=== PATIENT | female | born 1980 | race Caucasian/White ===

== ENCOUNTER → 2017-02-09 | Outpatient (REF) | payer MEDICAID ==
[2017-02-09 18:34] LABS: MEAN CORPUSCULAR HEMOGLOBIN 31.9 pg (27.0-33.0); MEAN CORPUSCULAR HGB CONC 33.9 g/dl (32.0-36.5); MEAN CORPUSCULAR VOLUME 93.9 fl (80.0-96.0); PLATELET COUNT, AUTOMATED 322 10^3/uL (150-450); RED CELL DISTRIBUTION WIDTH 13.2 % (11.5-14.5); WHITE BLOOD COUNT 10.5 10^3/uL (4.0-10.0)
[2017-02-09 18:44] LABS: HCG, SERUM QUANTITATIVE 50513 MIU/ML
[2017-02-11 10:47] LABS: HBsAg Prenatal NEGATIVE (NEGATIVE)
== END ==
LOC: M LAB REF 16:32
PROVIDERS: ATTEND Obstetrics & Gynecology
DX: Z36.9 Encounter for antenatal screening, unspecified (principal); O36.80X0 Pregnancy with inconclusive fetal viability, not applicable or unspecified

== ENCOUNTER → 2017-03-11 | Outpatient (REF) | payer MEDICAID ==
[2017-03-11 15:33] LABS: CHLAMYDIA DNA AMPLIFICATION NEGATIVE (NEGATIVE); GC DNA AMPLIFICATION NEGATIVE (NEGATIVE)
== END ==
LOC: M LAB REF 13:06
DX: Z34.91 Encounter for supervision of normal pregnancy, unspecified, first trimester (principal); Z36.89 Encounter for other specified antenatal screening
CPT/HCPCS: 87591

== ENCOUNTER → 2017-06-24 | Outpatient (CLI) | payer OTHER ==
[2017-06-24 08:44] LABS: GLUCOSE, FASTING 83 MG/DL (LESS THAN 95)
[2017-06-24 09:50] LABS: 1 HR GLUCOSE 143 MG/DL (LESS THAN 180)
[2017-06-24 10:47] LABS: 2 HR GLUCOSE 118 MG/DL (LESS THAN 155)
[2017-06-24 12:08] LABS: 3 HR GLUCOSE 97 MG/DL (LESS THAN 140)
== END ==
LOC: M LAB 08:05
DX: O09.512 Supervision of elderly primigravida, second trimester (principal)
CPT/HCPCS: 82951

== ENCOUNTER → 2017-08-19 | Outpatient (REF) | payer OTHER | LOC: M LAB REF 12:46 | DX: Z34.83 Encounter for supervision of other normal pregnancy, third trimester (principal) ==

== ENCOUNTER 2017-09-10 06:34 | Inpatient (IN) | payer OTHER ==
[2017-09-10] MEDS: BICITRA 30ML SOLN UDC PO ×2 (09:00)
[2017-09-10 09:20] LABS: HEMATOCRIT 32.5 % (36.0-47.0); HEMOGLOBIN 10.7 g/dl (12.0-15.5); MEAN CORPUSCULAR HEMOGLOBIN 30.8 pg (27.0-33.0); MEAN CORPUSCULAR HGB CONC 32.9 g/dl (32.0-36.5); MEAN CORPUSCULAR VOLUME 93.7 fl (80.0-96.0); PLATELET COUNT, AUTOMATED 336 10^3/uL (150-450); RED BLOOD COUNT 3.47 10^6/uL (4.00-5.40); RED CELL DISTRIBUTION WIDTH 14.6 % (11.5-14.5); WHITE BLOOD COUNT 13.6 10^3/uL (4.0-10.0)
[2017-09-10 09:47] LABS: AMPHETAMINES URINE REFLEX NEGATIVE (NEGATIVE); BARBITURATES URINE REFLEX NEGATIVE (NEGATIVE); BENZODIAZEPINES URINE REFLEX NEGATIVE (NEGATIVE); CANNABINOIDS URINE REFLEX NEGATIVE (NEGATIVE); COCAINE METABOLITE URINE REFLE NEGATIVE (NEGATIVE); METHADONE URINE REFLEX NEGATIVE (NEGATIVE); OPIATES URINE REFLEX NEGATIVE (NEGATIVE); PHENCYCLIDINE URINE REFLEX NEGATIVE (NEGATIVE)
[2017-09-10] MEDS: LACTATED RINGER'S 1000 ML IV ×2 (10:01)
[2017-09-10] MEDS: LR 1,000 ML IV ×6 (10:02→16:00)
[2017-09-10] MEDS ORDERED: MORPHINE PRES-FREE INJ 10 MG/10 ML VIAL (J2274) As Ordered ×2 (11:50)
[2017-09-10] MEDS ORDERED: ONDANSETRON 4MG/2ML VIAL (J2405) As Ordered ×2 (11:53)
[2017-09-10] MEDS ORDERED: dexameTHASONE 4 MG/ML 1ML VIAL (J1100) As Ordered ×2 (11:53)
[2017-09-10] MEDS ORDERED: KETOROLAC 60 MG/2 ML VIAL (J1885) As Ordered ×2 (11:53)
[2017-09-10] MEDS ORDERED: ePHEDrine SULFATE 25 MG/5 ML(5MG/ML) SYRINGE As Ordered ×4 (12:27→13:53)
[2017-09-10] MEDS ORDERED: PHENYLephrine HCL 500 MCG/5 ML (100MCG/ML) SYRINGE (J2370) As Ordered ×4 (12:27→12:33)
[2017-09-10] MEDS ORDERED: METHYLERGONOVINE MALEATE 0.2 MG TAB PO ×2 (13:15)
[2017-09-10] MEDS ORDERED: NORCO, ANEXSIA 5/325MG TABLET (HYDROcodone/ACETAMINOPHEN) PO ×2 (13:15)
[2017-09-10] MEDS ORDERED: MEASLES,MUMPS,RUBELLA VACCINE INJ (MMR-II) (90707) SC ×2 (13:15)
[2017-09-10] MEDS ORDERED: PERCOCET 5MG/325MG TAB PO ×2 (13:30)
[2017-09-10] MEDS ORDERED: MEPERIDINE INJ 25 MG/ML VIAL (J2175) IV ×2 (13:30)
[2017-09-10] MEDS ORDERED: ONDANSETRON 4MG/2ML VIAL (J2405) IV ×2 (13:30)
[2017-09-10] MEDS ORDERED: METOCLOPRAMIDE INJ 10MG/2ML VIAL (J2765) IV ×2 (13:30)
[2017-09-10] MEDS ORDERED: fentaNYL 100 MCG/2 ML INJECTION (J3010) IV ×2 (13:30)
[2017-09-10] MEDS ORDERED: diphenhydrAMINE INJ 50MG/ML VIAL (J1200) IV ×2 (14:15)
[2017-09-10] MEDS ORDERED: fentaNYL 100 MCG/2 ML INJECTION (J3010) As Ordered ×2 (14:15)
[2017-09-10] MEDS: DOCUSATE SODIUM 100 MG CAP PO ×6 (15:29→20:17)
[2017-09-10] MEDS: PRENATAL VITAMINS CHEWABLE TABLET PO ×2 (15:31)
[2017-09-10] MEDS: IBUPROFEN 800 MG TAB PO ×2 (20:02)
[2017-09-11] MEDS: IBUPROFEN 800 MG TAB PO ×6 (04:39→19:01)
[2017-09-11 07:48] LABS: HEMATOCRIT 28.2 % (36.0-47.0); HEMOGLOBIN 9.5 g/dl (12.0-15.5); MEAN CORPUSCULAR HEMOGLOBIN 31.6 pg (27.0-33.0); MEAN CORPUSCULAR HGB CONC 33.7 g/dl (32.0-36.5); MEAN CORPUSCULAR VOLUME 93.7 fl (80.0-96.0); PLATELET COUNT, AUTOMATED 282 10^3/uL (150-450); RED BLOOD COUNT 3.01 10^6/uL (4.00-5.40); RED CELL DISTRIBUTION WIDTH 14.6 % (11.5-14.5); WHITE BLOOD COUNT 16.2 10^3/uL (4.0-10.0)
[2017-09-11 08:38] LABS: FETAL SCREEN PROF. 1 1
[2017-09-11] MEDS: DOCUSATE SODIUM 100 MG CAP PO ×6 (09:00→21:00)
[2017-09-11] MEDS: PRENATAL VITAMINS CHEWABLE TABLET PO ×2 (09:03)
[2017-09-11] MEDS: RHOGAM 300 MCG (1500 IU) INJ (J2790) IM ×2 (09:05)
[2017-09-11] MEDS: NORCO, ANEXSIA 5/325MG TABLET (HYDROcodone/ACETAMINOPHEN) PO ×4 (19:00→22:57)
[2017-09-11] MEDS: MOM 30ML SUSPENSION UDC PO ×2 (21:34)
[2017-09-12] MEDS: IBUPROFEN 800 MG TAB PO ×2 (03:06)
[2017-09-12] MEDS: NORCO, ANEXSIA 5/325MG TABLET (HYDROcodone/ACETAMINOPHEN) PO ×4 (03:07→08:16)
[2017-09-12] MEDS: DOCUSATE SODIUM 100 MG CAP PO ×2 (08:04)
[2017-09-12] MEDS: PRENATAL VITAMINS CHEWABLE TABLET PO ×2 (08:17)
== END 2017-09-12 11:50 | disposition home or self-care (01) | DRG 540 ==
LOC: M LDI 06:34 → M OBS 14:58
PROVIDERS: Obstetrics & Gynecology
PROC: 10D00Z1 Extraction of Products of Conception, Low, Open Approach (ICD-10-PCS; principal; 2017-09-10 12:03)
PROC: 0UL70DZ Occlusion of Bilateral Fallopian Tubes with Intraluminal Device, Open Approach (ICD-10-PCS; 2017-09-10 12:03)
DX: O40.3XX0 Polyhydramnios, third trimester, not applicable or unspecified (principal); O32.8XX0 Maternal care for other malpresentation of fetus, not applicable or unspecified; Z37.0 Single live birth; Z3A.39 39 weeks gestation of pregnancy; O34.211 Maternal care for low transverse scar from previous cesarean delivery; Z30.2 Encounter for sterilization; O09.523 Supervision of elderly multigravida, third trimester

== ENCOUNTER → 2017-12-28 | Outpatient (REF) | payer OTHER ==
[2017-12-28 13:34] LABS: HEMATOCRIT 41.9 % (36.0-47.0); HEMOGLOBIN 13.6 g/dl (12.0-15.5); MEAN CORPUSCULAR HEMOGLOBIN 30.6 pg (27.0-33.0); MEAN CORPUSCULAR HGB CONC 32.5 g/dl (32.0-36.5); MEAN CORPUSCULAR VOLUME 94.4 fl (80.0-96.0); PLATELET COUNT, AUTOMATED 403 10^3/uL (150-450); RED BLOOD COUNT 4.44 10^6/uL (4.00-5.40); RED CELL DISTRIBUTION WIDTH 14.9 % (11.5-14.5); WHITE BLOOD COUNT 9.5 10^3/uL (4.0-10.0)
[2017-12-28 14:44] LABS: ALBUMIN 3.8 GM/DL (3.2-5.2); ALBUMIN/GLOBULIN RATIO 1.27 (1.00-1.93); ALKALINE PHOSPHATASE 113 U/L (45-117); ALT/SGPT 23 U/L (12-78); ANION GAP 8 MEQ/L (8-16); AST/SGOT 18 U/L (7-37); BILIRUBIN,TOTAL 0.4 MG/DL (0.2-1.0); BLOOD UREA NITROGEN 8 MG/DL (7-18); CALCIUM LEVEL 8.8 MG/DL (8.5-10.1); CARBON DIOXIDE LEVEL 24 MEQ/L (21-32); CHLORIDE LEVEL 108 MEQ/L (98-107); CHOLESTEROL LEVEL 190 MG/DL (<200); CHOLESTEROL RISK RATIO 4.634 (<5); CREATININE FOR GFR 0.75 MG/DL (0.55-1.30); FREE T4 0.88 NG/DL (0.76-1.46); GLOMERULAR FILTRATION RATE > 60.0 (>60); GLUCOSE, FASTING 79 MG/DL (70-100); HDL CHOLESTEROL 41 MG/DL (>40); LDL CHOLESTEROL 120 MG/DL (<100); NON-HDL-C 149 MG/DL; POTASSIUM SERUM 5.3 MEQ/L (3.5-5.1); SODIUM LEVEL 140 MEQ/L (136-145); TOTAL PROTEIN 6.8 GM/DL (6.4-8.2); TRIGLYCERIDES LEVEL 144 MG/DL (<150)
== END ==
LOC: M LAB REF 13:17
DX: Z01.419 Encounter for gynecological examination (general) (routine) without abnormal findings (principal)
CPT/HCPCS: 84443

== ENCOUNTER → 2018-09-06 | Outpatient (CLI) | payer OTHER ==
[~2018-09-06] MED LIST: IBUP-1114 PO; NORC1TAB7 PO; PERC5TAB12 PO; PRENTAB9 PO
--- NOTE | 2018-09-06 18:31 | REP ---
Clinical: Trauma. Pain. Technique: AP, lateral, oblique views of the fifth toe. Findings: Oblique minimally displaced fracture involving the proximal phalanx noted. Impression: Acute oblique fracture of the proximal phalanx fifth toe. Electronically Signed by Zack Euceda MD 09/06/2018 06:22 P
== END ==
LOC: M WUC 18:04
PROVIDERS: ATTEND Physician Assistant
DX: S92.511A Displaced fracture of proximal phalanx of right lesser toe(s), initial encounter for closed fracture (principal); X58.XXXA Exposure to other specified factors, initial encounter; Y92.89 Other specified places as the place of occurrence of the external cause

== ENCOUNTER → 2020-02-21 | Outpatient (CLI) | payer OTHER ==
[~2020-02-21] MED LIST changes: +GASTROGRAFIN SOLUTION 30ML (Q9963) As Ordered ONE; +ISOVUE-370 76% 100ML VIAL As Ordered ONE
--- NOTE | 2020-02-21 16:41 | REP ---
INDICATION: RLQ ABD PAIN COMPARISON: None. TECHNIQUE: CT Scan of the abdomen and pelvis was performed with intravenous administration of 100 cc of Isovue 370, and oral contrast. FINDINGS: Lung bases: Unremarkable. There is a small hiatal hernia. Liver: A homogeneously enhancing nodule is seen in the anterior right lobe 2.4 cm in diameter. Gallbladder: Unremarkable. Spleen: Normal. Adrenals: Normal. Pancreas: Normal. Kidneys: Normal. Small and large bowel: Unremarkable. Multiple diverticula are noted of the left colon without evidence of acute diverticulitis. Free fluid: None. Abdominal aorta: No aneurysm or dissection. Adenopathy: None. Appendix: Not inflamed. Osseous structures: Unremarkable. Pelvis: No mass. Tubal clips are seen bilaterally. There is a large cyst with internal septations of the left ovary. This measures approximately 6.7 x 8.5 x 5.3 cm. There is no other evidence of adnexal mass. Uterus is deviated to the right. Urinary bladder is not well distended and not well evaluated. IMPRESSION: Homogeneously enhancing nodule in the anterior right lobe of the liver 2.4 cm in diameter. This most likely represents a hemangioma or adenoma. Large left ovarian cyst with internal septations measuring 6.7 x 8.5 x 5.3 cm. Recommend further evaluation with pelvic ultrasound. <Electronically signed by Philipp Bean > 02/21/20 [id number]
== END ==
LOC: M RAD 12:40
PROVIDERS: ATTEND Nurse Practitioner Family
DX: C22.9 Malignant neoplasm of liver, not specified as primary or secondary (principal); N83.202 Unspecified ovarian cyst, left side
CPT/HCPCS: 74177; Q9963; Q9967

== ENCOUNTER → 2020-03-07 | Outpatient (CLI) | payer OTHER ==
[~2020-03-07] MED LIST changes: -GASTROGRAFIN SOLUTION 30ML (Q9963) As Ordered ONE; -ISOVUE-370 76% 100ML VIAL As Ordered ONE
--- NOTE | 2020-03-07 10:53 | REP ---
INDICATION: N83.202 LT OVARIAN CYST. COMPARISON: Comparison CT study abdomen pelvis February 21 2020. This showed an 8.5 x 6.7 x 5.3 cm septated cystic lesion in the left ovary.. TECHNIQUE: Transabdominal and transvaginal scanning were performed. FINDINGS: Uterine dimensions are normal at 7.6 x 4.6 x 5.3 cm. Endometrial echo is 0.7 cm thick and centrally placed. No free fluid is seen in the cul-de-sac. Visualized bladder yanez are smooth. The uterus is retroverted. No focal uterine lesion is seen. The right ovary has dimensions of 4.0 x 1.9 x 3.7 cm. Doppler blood flow is present in both ovaries. The left ovary dimensions are normal as well at 8.0 x 5.3 x 9.4 cm. There is a septated cystic left ovarian lesion measuring 7.5 x 5.2 x 9.3 cm. This corresponds with the CT findings. No free fluid is seen. No solid mass lesion is observed. Septations are slightly thickened however. No nodularity is appreciated. IMPRESSION: 9.3 cm septated cystic mass left ovary. Neoplastic cystic lesion cannot be excluded. Retroverted uterus. Otherwise negative.. <Electronically signed by Ruddy Sky > 03/07/20 [id number]
== END ==
LOC: M WHC 09:24
PROVIDERS: ATTEND Nurse Practitioner Family
DX: N83.202 Unspecified ovarian cyst, left side (principal)

== ENCOUNTER → 2020-04-04 | Outpatient (CLI) | payer OTHER ==
[~2020-04-04] MED LIST changes: +OMEP-221
== END ==
LOC: M LABSMTC 10:45
PROVIDERS: ATTEND Anesthesiology
DX: Z01.812 Encounter for preprocedural laboratory examination (principal); Z20.822 Contact with and (suspected) exposure to COVID-19

== ENCOUNTER 2020-04-09 08:32 | Day surgery (SDC) | payer OTHER ==
[~2020-04-09] VITALS: Ht 160 cm; Wt 75.9 kg
[~2020-04-09 08:32] MED LIST changes: +LIDOCAINE 2% 100MG/5ML SDV (FOR ANES.) As Ordered ONE; +NS 1,000 ML IV ONE; +fentaNYL 100 MCG/2 ML INJECTION (J3010) As Ordered ONE; +propofoL 500 MG/50 ML VIAL As Ordered ONE
--- OUTSIDE RECORDS SUMMARY | 2020-04-09 08:37 | CCD ---
Author Author [facility] Organization [facility] Address Unknown Phone Unavailable Care Team Providers Care Military Personnel Specialist Name Role Phone Jamesmatthew Danica Unavailable PROBLEMS Type Condition ICD9-CM Code DCZ97-XX Code Onset Dates Condition S tatus SNOMED Code Notes Problem Pharyngoesophageal dysphagia R13.14 Active [id number] [id number] Problem Cigarette nicotine dependence, uncomplicated F17.2 10 Active 95316685 Problem Gastroesophageal reflux disease without esophagitis K21.9 Active 345513099 Problem Tobacco use disorder Z72.0 Active 34550996 ALLERGIES Allergen (clinical drug ingredient) Drug/Non Drug Allergy do cumented on EMR Reaction Allergy Type Onset Date Status Anesthetic Maximum Strength Swelling Drug Allergy Active ENCOUNTERS from 1981 to 2020-03-07 Encounter Location Date Provider Diagnosis [address] [address] Feb Danica Rodriguez IMMUNIZATIONS Vaccine Route Administration Date Status Influenza (6mo & up) Fluzone Unknown Jan 08, 2016 Ref used SOCIAL HISTORY Tobacco Use: Social History Observation Description Date Details (start date - stop date) Current Smoker Sex Assigned At : Social History Observation Description Sex Assigned At Unknown Education: Question Answer Notes Level of Education: Finished High School Audit Question Answer Notes Total Score: 3 Interpretation: Alcohol Education Language: Question Answer Notes Languages spoken: Gambian Synagogue: Question Answer Notes Synagogue No oriental orthodox beliefs that would impact health care. Sexual Hx: Question Answer Notes Had sex in the last 12 months (vaginal, oral, or anal)? Yes LMP: 11/20/2017 Have you ever had an STD? No with Men only Use protection? No Drug and Alcohol Question Answer Notes Total Score: 0 Interpretation: No problems reported Alcohol Screening: Question Answer Notes Did you have a drink containing alcohol in the past year? Ye s Points 5 Interpretation Positive How often did you have six or more drinks on one occas ion in the past year? Less than monthly (1 point) How many drinks did you have on a typica l day when you were drinking in the past year? 1 or 2 (0 points) How often did you have a drink containing alcohol in t he past year? Four or more times a week (4 points) BMI Care Goal Follow-Up Question Answer Notes Above Normal BMI Follow-Up Dietary management educatio n, guidance, and counseling Tobacco Use: Question Answer Notes Are you a: current smoker Additional Findings: Tobacco User Moderate cigarette smoker (10-19 cigs/day) Smoking Cessation Information Given 02/06/2020 Patient counseled on the dangers of tobacco use and urged to quit: 02/06/2020 How many cigarettes a day do you smoke? 6-10 Are you interested in quitting? Thinking about quitting REASON FOR REFERRAL No Information VITAL SIGNS No information MEDICATIONS Medication SIG (Take, Route, Frequency, Duration) Notes Start Da te End Date Status Ofloxacin 0.3 % 10 drops into affected ear Otic Daily for 7 day( s) July, Not-Taking Fluconazole 50 MG 2 tablets Orally Daily for 10 day(s) Jan, Active Amoxicillin-Pot Clavulanate 875-125 MG 1 tablet Orally every 12 hrs for 10 day(s) July, Not-Taking Omeprazole 40 mg 1 capsule Orally Once a day for 90 Active PROCEDURES No Information RESULTS No Results REASON FOR VISIT Kamla lux MEDICAL (GENERAL) HISTORY Type Description Date Medical History Diverticulosis Medical History Diverticulitis Medical History Esophageal curve that causes acid reflux Surgical History c section w/tubal ligation 2018 Hospitalization History child 2018 Goals Section No Information Health Concerns No Information MEDICAL EQUIPMENT No Information MENTAL STATUS No Information FUNCTIONAL STATUS No Information ASSESSMENTS No Information PLAN OF TREATMENT Medication Medication Name Sig Start Date Stop Date Fluconazole 50 MG 2 tablets Orally Daily for 10 day(s) Jan, 020 Insurance Providers Payer Name Payer Address Payer Phone Insured Name Patient Relati onship to Insured Coverage Start Date Coverage End Date [employer] [address] [place] [address] Cornelia STEPHENSON self
--- OUTSIDE RECORDS SUMMARY | 2020-04-09 08:37 | CCD ---
Author Author [facility] Organization [facility] Address Unknown Phone Unavailable Care Team Providers Care Pants Presser Name Role Phone Blaze Barlow MD Unavailable Unavailable Blaze Barlow MD Unavailable Unavailable Blaze Barlow MD Unavailable Unavailable Blaze Barlow MD Unavailable Unavailable Blaze Barlow MD Unavailable Unavailable Blaze Barlow MD Unavailable Unavailable Blaze Barlow MD Unavailable Unavailable Blaze Barlow MD Unavailable Unavailable Blaze Barlow MD Unavailable Unavailable Blaze Barlow MD Unavailable Unavailable Blaze Barlow MD Unavailable Unavailable Blaze Barlow MD Unavailable Unavailable Blaze Barlow MD Unavailable Unavailable Blaze Barlow MD Unavailable Unavailable Blaze Barlow MD Unavailable Unavailable Blaze Barlow MD Unavailable Unavailable Blaze Barlow MD Unavailable Unavailable Blaze Barlow MD Unavailable Unavailable Blaze Barlow MD Unavailable Unavailable Blaze Barlow MD Unavailable Unavailable Blaze Barlow MD Unavailable Unavailable Blaze Barlow MD Unavailable Unavailable Blaze Barlow MD Unavailable Unavailable Blaze Barlow MD Unavailable Unavailable Yen, S Cam MD Unavailable Unavailable Yen, S Cam MD Unavailable Unavailable Yen, S Cam MD Unavailable Unavailable Yen, S Cam MD Unavailable Unavailable Yen, S Cam MD Unavailable Unavailable Yen, S Cam MD Unavailable Unavailable Yen, S Cam MD Unavailable Unavailable Yen, S Cam MD Unavailable Unavailable Yen, S Cam MD Unavailable Unavailable Yen, S Cam MD Unavailable Unavailable Yen, S Cam MD Unavailable Unavailable Yen, S Cam MD Unavailable Unavailable Yen, S Cam MD Unavailable Unavailable Yen, S Cam MD Unavailable Unavailable Yen, S Cam MD Unavailable Unavailable Yen, S Cam MD Unavailable Unavailable Yen, S Cam MD Unavailable Unavailable Yen, S Cam MD Unavailable Unavailable Yen, S Cam MD Unavailable Unavailable Yen, S Cam MD Unavailable Unavailable Yen, S Cam MD Unavailable Unavailable Yen, S Cam MD Unavailable Unavailable Yen, S Cam MD Unavailable Unavailable Yen, S Cam MD Unavailable Unavailable Re-disclosure Warning The records that you are about to access may contain information from federally-assisted alcohol or drug abuse programs. If such information is present, then the following federally mandated warning applies: This information has been disclosed to you from records protected by federal confidentiality rules (42 CFR part 2). The federal rules prohibit you from making any further disclosure of this information unless further disclosure is expressly permitted by the written consent of the person to whom it pertains or as otherwise permitted by 42 CFR part 2. A general authorization for the release of medical or other information is NOT sufficient for this purpose. The Federal rules restrict any use of the information to criminally investigate or prosecute any alcohol or drug abuse patient.The records that you are about to access may contain highly sensitive health information, the redisclosure of which is protected by Article 27-F of the [facility] Public Health law. If you continue you may have access to information: Regarding HIV / AIDS; Provided by facilities licensed or operated by the [facility] Office of Mental Health; or Provided by the [facility] Office for People With Developmental Disabilities. If such information is present, then the following [facility] mandated warning applies: This information has been disclosed to you from confidential records which are protected by state law. State law prohibits you from making any further disclosure of this information without the specific written consent of the person to whom it pertains, or as otherwise permitted by law. Any unauthorized further disclosure in violation of state law may result in a fine or senior living sentence or both. A general authorization for the release of medical or other information is NOT sufficient authorization for further disc losure. Allergies and Adverse Reactions Type Description Substance Reaction Status Data Source(s ) Anesthetic Maximum Strength Anesthetic Maximum Strength Anes thetic Maximum Strength Swelling Active eCW1 ([facility]) Family History Family Member Name Family Member Gender Family Member Status Date o f Status Description Data Source(s) Unknown Unknown Problem MEDENT ([facility]) Encounters Encounter Providers Location Date Indications Data Source(s ) Outpatient Attender: Cam Barlow MD Main Office 03/27/2020 02:00:00 PM EST MEDENT ([facility]) Outpatient [address] [place] [phone] 03/15/2020 12:00:00 AM EST eCW1 ([facility]) Unknown [address] [place] [phone] 03/15/2020 12:00:00 AM EST eCW1 ([facility]) Unknown [address] [place] [phone] 03/07/2020 12:00:00 AM EST eCW1 ([facility]) Unknown [address] [place] [phone] 02/27/2020 12:00:00 AM EST eCW1 ([facility]) Outpatient [address] [place] [phone] 02/06/2020 12:00:00 AM EST eCW1 ([facility]) [address] [phone] 07/11/2019 12:00:00 AM EDT eCW1 ([facility]) [address] [address] 07/11/2019 12:00:00 AM EDT eCW1 ([facility]) [address] [phone] 07/11/2019 12:00:00 AM EDT eCW1 ([facility]) [address], [facility] [phone] 07/11/2019 12:00:00 AM EDT eCW1 ([facility]) Medications Medication Brand Name Start Date Product Form Dose Route Admi nistrative Instructions Pharmacy Instructions Status Indications Reaction Description Data Source(s) Fluconazole 50 MG Oral Tablet Fluconazole 50 MG 02/06/2020 12:00:00 AM EST 2.0 {tablets} active Fluconazole 50 MG eCW1 ([facility]) Fluconazole 50 MG Oral Tablet Fluconazole 50 MG 02/06/2020 12:00:00 AM EST 2.0 {tablets} active Fluconazole 50 MG eCW1 ([facility]) 50 mg 02/06/2020 12:00:00 AM EST tablet 20 TAKE TWO TABLETS BY MOUTH EVERY DAY TAKE TWO TABLETS BY MOUTH EVERY DAY SOLD: 02/09/2020 [facility] Fluconazole 50 MG Oral Tablet Fluconazole 50 MG 02/06/2020 12:00:00 AM EST 2.0 {tablets} active Fluconazole 50 MG eCW1 ([facility]) Fluconazole 50 MG Oral Tablet Fluconazole 50 MG 02/06/2020 12:00:00 AM EST 2.0 {tablets} active Fluconazole 50 MG eCW1 ([facility]) Fluconazole 50 MG Oral Tablet Fluconazole 50 MG 02/06/2020 12:00:00 AM EST 2.0 {tablets} active Fluconazole 50 MG eCW1 ([facility]) Ofloxacin 3 MG/ML Ophthalmic Solution Ofloxacin 0.3 % Ofloxa tamiko 0.3 % 07/11/2019 12:00:00 AM EDT active 10 drops into affected ear eCW1 ([facility]) Ofloxacin 3 MG/ML Ophthalmic Solution Ofloxacin 0.3 % Ofloxa tamiko 0.3 % 07/11/2019 12:00:00 AM EDT 10.0 {drops_into_affected_ear} s uspended Ofloxacin 0.3 % eCW1 ([facility]) Amoxicillin 875 MG / Clavulanate 125 MG Oral Tablet Amoxicillin-Pot Clavulanate 875-125 MG Amoxicillin-Pot Clavulanate 875-125 MG 07/11/2019 12:00:00 AM ED T active 1 tablet eCW1 ([facility]) Amoxicillin 875 MG / Clavulanate 125 MG Oral Tablet Amoxicillin-Pot Clavulanate 875-125 MG Amoxicillin-Pot Clavulanate 875-125 MG 07/11/2019 12:00:00 AM ED T 1.0 {tablet} suspended Amoxicillin-Pot C lavulanate 875-125 MG eCW1 ([facility]) Ofloxacin 3 MG/ML Ophthalmic Solution Ofloxacin 0.3 % Ofloxa tamiko 0.3 % 07/11/2019 12:00:00 AM EDT 10.0 {drops_into_affected_ear} s uspended Ofloxacin 0.3 % eCW1 ([facility]) Amoxicillin 875 MG / Clavulanate 125 MG Oral Tablet Amoxicillin-Pot Clavulanate 875-125 MG Amoxicillin-Pot Clavulanate 875-125 MG 07/11/2019 12:00:00 AM ED T 1.0 {tablet} suspended Amoxicillin-Pot C lavulanate 875-125 MG eCW1 ([facility]) Ofloxacin 3 MG/ML Ophthalmic Solution Ofloxacin 0.3 % Ofloxa tamiko 0.3 % 07/11/2019 12:00:00 AM EDT active 1 drop i nto affected eye eCW1 ([facility]) Ofloxacin 3 MG/ML Ophthalmic Solution Ofloxacin 0.3 % Ofloxa tamiko 0.3 % 07/11/2019 12:00:00 AM EDT 10.0 {drops_into_affected_ear} s uspended Ofloxacin 0.3 % eCW1 ([facility]) Amoxicillin 875 MG / Clavulanate 125 MG Oral Tablet Amoxicillin-Pot Clavulanate 875-125 MG Amoxicillin-Pot Clavulanate 875-125 MG 07/11/2019 12:00:00 AM ED T 1.0 {tablet} suspended Amoxicillin-Pot C lavulanate 875-125 MG eCW1 ([facility]) Ofloxacin 3 MG/ML Ophthalmic Solution Ofloxacin 0.3 % Ofloxa tamiko 0.3 % 07/11/2019 12:00:00 AM EDT 10.0 {drops_into_affected_ear} s uspended Ofloxacin 0.3 % eCW1 ([facility]) Amoxicillin 875 MG / Clavulanate 125 MG Oral Tablet Amoxicillin-Pot Clavulanate 875-125 MG Amoxicillin-Pot Clavulanate 875-125 MG 07/11/2019 12:00:00 AM ED T 1.0 {tablet} suspended Amoxicillin-Pot C lavulanate 875-125 MG eCW1 ([facility]) Ofloxacin 3 MG/ML Ophthalmic Solution Ofloxacin 0.3 % Ofloxa tamiko 0.3 % 07/11/2019 12:00:00 AM EDT 10.0 {drops_into_affected_ear} s uspended Ofloxacin 0.3 % eCW1 ([facility]) Ofloxacin 3 MG/ML Ophthalmic Solution Ofloxacin 0.3 % Ofloxa tamiko 0.3 % 07/11/2019 12:00:00 AM EDT active 1 drop i nto affected ear eCW1 ([facility]) Amoxicillin 875 MG / Clavulanate 125 MG Oral Tablet Amoxicillin-Pot Clavulanate 875-125 MG Amoxicillin-Pot Clavulanate 875-125 MG 07/11/2019 12:00:00 AM ED T 1.0 {tablet} suspended Amoxicillin-Pot C lavulanate 875-125 MG eCW1 ([facility]) 40 mg 05/02/2019 12:00:00 AM EST capsule,delayed release (DR/EC) 30 TAKE ONE CAPSULE BY MOUTH EVERY DAY TAKE ONE CAPSULE BY MOUTH EVERY DAY SOLD: 02/09/2020 [facility] 40 mg 05/02/2019 12:00:00 AM EST capsule,delayed release (DR/EC) 30 TAKE ONE CAPSULE BY MOUTH EVERY DAY TAKE ONE CAPSULE BY MOUTH EVERY DAY SOLD: 12/15/2019 [facility] 40 mg 05/02/2019 12:00:00 AM EST capsule,delayed release (DR/EC) 30 TAKE ONE CAPSULE BY MOUTH EVERY DAY TAKE ONE CAPSULE BY MOUTH EVERY DAY SOLD: 09/27/2019 [facility] 40 mg 05/02/2019 12:00:00 AM EST capsule,delayed release (DR/EC) 30 TAKE ONE CAPSULE BY MOUTH EVERY DAY TAKE ONE CAPSULE BY MOUTH EVERY DAY SOLD: 05/08/2019 [facility] 40 mg 05/02/2019 12:00:00 AM EST capsule,delayed release (DR/EC) 30 TAKE ONE CAPSULE BY MOUTH EVERY DAY TAKE ONE CAPSULE BY MOUTH EVERY DAY SOLD: 06/24/2019 [facility] 40 mg 03/22/2018 12:00:00 AM EST capsule,delayed release (DR/EC) 30 TAKE ONE CAPSULE BY MOUTH EVERY DAY TAKE ONE CAPSULE BY MOUTH EVERY DAY SOLD: 02/14/2019 [facility] Insurance Providers Payer name Policy type / Coverage type Policy ID Covered republican ID Covered republican's relationship to jean Policy Jean Plan Information [facility] [id number] SP [id number] [facility] [id number] SP [id number] [facility] [id number] SP [id number] [facility] O [id number] S [id number] [facility] [id number] SP [id number] [facility] [id number] SP [id number] [facility] Commercial [id number] Self [id number] ANSI-Not a Secondary Insurance [id number] ANSI-Not a Secondary Insurance [id number] ANSI-Not a Secondary Insurance [id number] ANSI-Not a Secondary Insurance [id number] ANSI-Not a Secondary Insurance [id number] ANSI-Not a Secondary Insurance [id number] ANSI-Not a Secondary Insurance [id number] ANSI-Not a Secondary Insurance [id number] ANSI-Not a Secondary Insurance [id number] ANSI-Not a Secondary Insurance [id number] ANSI-Not a Secondary Insurance [id number] ANSI-Not a Secondary Insurance [id number] [facility] [id number] ANSI-Not a Secondary Insurance [id number] ANSI-Not a Secondary Insurance [id number] ANSI-Not a Secondary Insurance [id number] ANSI-Not a Secondary Insurance [id number] ANSI-Not a Secondary Insurance [id number] ANSI-Not a Secondary Insurance [id number] MEDICAID [id number] SP [id number] Problems, Conditions, and Diagnoses Code Display Name Description Problem Type Effective Dates Data Source(s) 04596461 Abdominal pain Abdominal pain Problem 03/27/2020 12:00: 00 AM EST MEDENT ([facility]) K76.89 647732038 Liver nodule Problem 03/15/2020 12:00:00 AM EST eCW1 ([facility]) Results ID Date Data Source [id number] 04/04/2020 09:00:00 AM EST [facility] Name Value Range Interpretation Code Description Data Mar rce(s) Supporting Document(s) SARS coronavirus 2 RNA Not Detected [facility] [place] This lab was ordered by [facility] and reported by [facility]. ID Date Data Source [id number] 12/28/2019 12:00:00 AM EDT [facility] Name Value Range Interpretation Code Description Data Mar rce(s) Supporting Document(s) SARS coronavirus 2 Ag [facility] This lab was ordered by [facility] and reported by [facility]. Procedure Social History Code Duration Value Status Description Data Source(s ) Smoking 03/15/2020 12:00:00 AM EST Current Smoker completed Curre nt Smoker eCW1 ([facility]) Smoking 03/15/2020 12:00:00 AM EST Current Smoker completed Curre nt Smoker eCW1 ([facility]) Smoking 02/06/2020 12:00:00 AM EST Current Smoker completed Curre nt Smoker eCW1 ([facility]) Smoking 02/06/2020 12:00:00 AM EST Current Smoker completed Curre nt Smoker eCW1 ([facility]) Smoking 02/06/2020 12:00:00 AM EST Current Smoker completed Curre nt Smoker eCW1 ([facility]) Vital Signs ID Date Data Source UNK Name Value Range Interpretation Code Description Data Source(s) Body temperature 97.2 [degF] 97.2 [degF] MEDENT ([facility]) Body weight 77.566 kg 77.566 kg [facility] ([facility]) Body mass index (BMI) [Ratio] 30.3 kg/m2 30.3 k g/m2 MEDENT ([facility]) Heart rate 98 /min 98 /min MEDENT ([facility]) Diastolic blood pressure 76 mm[Hg] 76 mm[Hg] MEDENT ([facility]) Systolic blood pressure 125 mm[Hg] 125 mm[Hg] M EDENT ([facility]) Body weight 171.00 [lb_av] 171.00 [lb_av] MEDEN T ([facility]) Body height 63 [in_i] 63 [in_i] MEDENT ([facility]) 5'3" Diastolic blood pressure 62 mm[Hg] 62 mm[Hg] eCW1 ([facility]) Systolic blood pressure 108 mm[Hg] 108 mm[Hg] e CW1 ([facility]) Body temperature 979 [degF] 979 [degF] eCW1 ([facility]) Respiratory rate 18 /min 18 /min eCW1 ([facility]) Heart rate 97 /min 97 /min eCW1 ([facility]) Body mass index (BMI) [Ratio] 29.58 kg/m2 29.58 kg/m2 eCW1 ([facility]) Body height [in_i] eCW1 ([facility]) Body weight 171 [lb_av] 171 [lb_av] eCW1 ([facility]) Diastolic blood pressure 76 mm[Hg] 76 mm[Hg] eCW1 ([facility]) Systolic blood pressure 120 mm[Hg] 120 mm[Hg] e CW1 ([facility]) Body temperature 97.3 [degF] 97.3 [degF] eCW1 ( [facility]) Respiratory rate 20 /min 20 /min eCW1 ([facility]) Heart rate 106 /min 106 /min eCW1 ([facility]) Body mass index (BMI) [Ratio] 30.64 kg/m2 30.64 kg/m2 eCW1 ([facility]) Body height [in_i] eCW1 ([facility]) Body weight 177.12 [lb_av] 177.12 [lb_av] eCW1 ([facility]) Diastolic blood pressure 77 mm[Hg] 77 mm[Hg] eCW1 ([facility]) Systolic blood pressure 113 mm[Hg] 113 mm[Hg] e CW1 ([facility]) Body temperature 98.7 [degF] 98.7 [degF] eCW1 ( [facility]) Respiratory rate 18 /min 18 /min eCW1 ([facility]) Heart rate 91 /min 91 /min eCW1 ([facility]) Body mass index (BMI) [Ratio] 29.58 kg/m2 29.58 kg/m2 eCW1 ([facility]) Body height [in_us] eCW1 ([facility]) Body weight Measured [lb_av] eCW1 ([facility]) Patient Treatment Plan of Care Planned Activity Planned Date Details Description Data Source (s) Fluconazole 50 MG Oral Tablet 02/06/2020 12:00:00 AM EST eCW1 ([facility]) Fluconazole 50 MG Oral Tablet 02/06/2020 12:00:00 AM EST eCW1 ([facility]) Fluconazole 50 MG Oral Tablet 02/06/2020 12:00:00 AM EST eCW1 ([facility]) Amoxicillin 875 MG / Clavulanate 125 MG Oral Tablet 07/11/19 12:00:00 AM EDT eCW1 ([facility]) Ofloxacin 3 MG/ML Ophthalmic Solution 07/11/2019 12:00:00 AM EDT eCW1 ([facility]) Ofloxacin 3 MG/ML Ophthalmic Solution 07/11/2019 12:00:00 AM EDT eCW1 ([facility]) Ofloxacin 3 MG/ML Ophthalmic Solution 07/11/2019 12:00:00 AM EDT eCW1 ([facility])
--- OUTSIDE RECORDS SUMMARY | 2020-04-09 08:37 | CCD | Continuity of Care Document ---
Author Author Kelly BARLOW M.D. Organization Unknown Address [address] [place] [address] Phone [phone] Care Team Providers Care Glove Cutter Name Role Phone Danica Rodriguez DIRECTIONAL DRILL OPERATOR AUTM [phone] Problems Active Problems Provider Date Abdominal pain Cam Barlow M.D. Onset: 03/27/19 21 Social History Type Date Description Comments Sex Unknown ETOH Use Occasionally Tobacco Use Start: Unknown Patient is a current smoker, smo kes every day Allergies, Adverse Reactions, Alerts Active Allergies Reaction Severity Comments Date Anesthesia 03/27/2020 Medications Active Medications SIG Qnty Indications Ordering Provide r Date Omeprazole 40mg Capsules DR Take One Capsule By Mouth Every Day Unknown Immunizations Description No Information Available Vital Signs Date Vital Result Comment 03/27/2020 3:24pm Height 63 inches 5'3" Weight 171.00 lb BP Systolic 125 mmHg BP Diastolic 76 mmHg Heart Rate 98 /min BMI (Body Mass Index) 30.3 kg/m2 Weight 77.566 kg Body Temperature 97.2 F Results Description No Information Available Procedures Description No Information Available Medical Devices Description No Information Available Encounters Type Date Location Provider Dx Diagnosis Office Visit 03/27/2020 3:00p Main Office Cam Barlow M.D. R 12 Heartburn Assessments Date Code Description Provider 03/27/2020 R12 Heartburn Cam barnett M.D. Plan of Treatment Future Appointment(s):* 04/02/2020 7:15 am - Pat-Remih at Main Office * 04/09/2020 11:00 am - Cam Barlow M.D. at Main Office 03/27/2020 - Cam Barlow M.D.* R12 Heartburn* Comments:* 39 yo wf who presents for a h/o dysphagia for several months + heartburn. No c/o abdominal pain, weight loss, change in bowel habits, or rectal bleeding. No f amily h/o colon cancer. No h/o chest pain, or sob. Plan:1. Egd + BD.2. Informed consent. Functional Status Description No Information Available Mental Status Description No Information Available Referrals Description No Information Available
--- OUTSIDE RECORDS SUMMARY | 2020-04-09 08:37 | CCD ---
Author Author [facility] Organization [facility] Address Unknown Phone Unavailable Care Team Providers Care Skilled Nursing Professional Name Role Phone Danica Rodriguez Unavailable PROBLEMS Type Condition ICD9-CM Code JTO27-RR Code Onset Dates Condition S tatus SNOMED Code Notes Problem Cigarette nicotine dependence, uncomplicated F17.2 10 Active 40619061 Problem Liver nodule K76.89 Active 723685892 Problem Gastroesophageal reflux disease without esophagitis K21.9 Active 556197603 Problem Tobacco use disorder Z72.0 Active 87532927 Problem Pharyngoesophageal dysphagia R13.14 Active 407 15028 ALLERGIES Allergen (clinical drug ingredient) Drug/Non Drug Allergy do cumented on EMR Reaction Allergy Type Onset Date Status Anesthetic Maximum Strength Swelling Drug Allergy Active ENCOUNTERS from 1981 to 2020-03-16 Encounter Location Date Provider Diagnosis [facility] [address] [place] [address] Mar Danica Rodriguez IMMUNIZATIONS Vaccine Route Administration Date [...] Education Language: Question Answer Notes Languages spoken: Italian Baptism: Question Answer Notes Baptism No presybeterian beliefs that would impact health care. Sexual [...] Notes Start Da te End Date Status Fluconazole 50 MG 2 tablets Orally Daily for 10 day(s) Jan, Active Amoxicillin-Pot Clavulanate 875-125 MG 1 tablet Orally every 12 hrs for 10 day(s) July, Not-Taking Ofloxacin 0.3 % 10 drops into affected ear Otic Daily for 7 day( s) July, Not-Taking Omeprazole 40 mg 1 capsule Orally Once a day for 90 Active PROCEDURES No Information RESULTS No Results REASON FOR VISIT speak with provider MEDICAL (GENERAL) HISTORY Type Description Date Medical History Diverticulosis Medical History Diverticulitis Medical History Esophageal curve that causes acid reflux Surgical History c section w/tubal ligation 2018 Hospitalization History child 2018 Goals Section No Information Health Concerns No Information MEDICAL EQUIPMENT No Information MENTAL STATUS No Information FUNCTIONAL STATUS No Information ASSESSMENTS No Information PLAN OF TREATMENT No Information Insurance Providers Payer Name Payer Address Payer Phone Insured Name Patient Relati onship to Insured Coverage Start Date Coverage End Date MVP [address] [facility] [phone] Cornelia STEPHENSON self
--- OUTSIDE RECORDS SUMMARY | 2020-04-09 08:37 | CCD | Continuity of Care Document ---
Author Author Kelly BARLOW M.D. Organization Unknown Address [address] [place] [id number] Phone [phone] Care Team Providers Care Blast Furnace Keeper Name Role Phone Danica Rodriguez EMPLOYEE COMM[employer]ICATION[employer] INTERN [employer] [phone] Problems Active Problems Provider Date Abdominal pain [...] Medical Devices Description No Information Available Encounters Description No Information Available Assessments Date Code Description Provider 03/27/2020 R12 Heartburn Cam barnett M.D. Plan of Treatment Future Appointment(s):* 04/02/2020 7:15 am - [facility] Main [facility] * 04/09/2020 11:00 am [...]
--- OUTSIDE RECORDS SUMMARY | 2020-04-09 08:37 | CCD ---
Author Author [facility] Organization [facility] Address Unknown Phone Unavailable Care Team Providers Care Mill Attendant Name Role Phone Danica Rodriguez Unavailable PROBLEMS Type Condition ICD9-CM Code [id number] Code Onset Dates Condition S tatus SNOMED Code Notes Problem Cigarette nicotine dependence, uncomplicated F17.2 10 Active 92555073 Problem Liver nodule K76.89 Active 354551917 Problem Gastroesophageal reflux disease without esophagitis K21.9 Active 401914285 Problem Tobacco use disorder Z72.0 Active 84456334 Problem Pharyngoesophageal dysphagia R13.14 Active 407 51930 ALLERGIES Allergen (clinical drug ingredient) Drug/Non Drug Allergy do cumented on EMR Reaction Allergy Type Onset Date Status Anesthetic Maximum Strength Swelling Drug Allergy Active ENCOUNTERS from 1981 to 2020-04-02 Encounter Location Date Provider Diagnosis [facility] [address] [place] [address] 07 Mar Danica Rodriguez Liver nodule K76.89 ; Gastroesophageal r eflux disease without esophagitis K21.9 ; Pharyngoesophageal dysphagia R13.14 ; Hiatal hernia K44.9 and Cyst of left ovary N83.202 IMMUNIZATIONS Vaccine Route Administration Date Status Influenza [...] Education Language: Question Answer Notes Languages spoken: Guatem[place] Confucianism: Question Answer Notes Confucianism No baptist beliefs that would impact health care. Sexual [...] REASON FOR REFERRAL No Information VITAL SIGNS Weight 171 lbs Mar, Height 63 3/4 in Mar, BMI 29.58 kg/m2 Mar, Heart Rate 97 /min Mar, Respiratory Rate 18 /min Mar, Temperature 979 degrees Fahrenheit Mar, Oximetry 99 Mar, Blood pressure systolic 108 mm Hg Mar, Blood pressure diastolic 62 mm Hg Mar, MEDICATIONS Medication SIG (Take, Route, Frequency, Duration) [...] Information RESULTS No Results REASON FOR VISIT PER DR MYRICK FOLLOW UP ON SCAN MEDICAL (GENERAL) HISTORY Type Description Date Medical History Diverticulosis Medical History Diverticulitis Medical History Esophageal curve that causes acid reflux Surgical History c section w/tubal ligation 2018 Hospitalization History child 2018 Goals Section No Information Health Concerns No Information MEDICAL EQUIPMENT No Information MENTAL STATUS No Information FUNCTIONAL STATUS No Information ASSESSMENTS Encounter Date Diagnosis Assessment Notes Treatment Notes Treatm ent Clinical Notes Mar, Liver nodule (ICD-10 - K76.89) Mar, Gastroesophageal reflux dise ase without esophagitis (ICD-10 - K21.9) Mar, Pharyngoesophageal dysphagia (ICD-10 - R13.14) referred to gastroentrology Mar, Hiatal hernia (ICD-10 - K44.9) Mar, Cyst of left ovary (ICD-10 - N83.202) continue with DURABILITY TECHNICIAN Mar, Other recheck tetsing and referrals in 3months or sooner prn. Patient verbalized understanding and agreement with stated plan. PLAN OF TREATMENT Treatment Notes Assessment Notes Clinical Notes Pharyngoesophageal dysphagia referred to gastroentrology Cyst of left ovary continue with DURABILITY TECHNICIAN Treatment Notes Test Name Order Date [facility] MRA Abd WITHOUT FOLL WITH CONT 2020-04-02 Next Appt Details 3 Months Reason: Insurance Providers Payer Name Payer Address Payer Phone Insured Name Patient Relati onship to Insured Coverage Start Date Coverage End Date [facility] [address] [place] [address] Cornelia STEPHENSON self
--- OUTSIDE RECORDS SUMMARY | 2020-04-09 08:37 | CCD ---
Author Author [facility] Organization [facility] Address Unknown Phone Unavailable Care Team Providers Care Tile Professional Name Role Phone Danica Rodriguez Unavailable PROBLEMS Type Condition ICD9-CM Code [id number] Code Onset Dates Condition S tatus SNOMED Code Notes Problem Pharyngoesophageal dysphagia R13.14 Active 407 98584 Problem Cigarette nicotine dependence, uncomplicated F17.2 10 Active 96945404 Problem Gastroesophageal reflux disease without esophagitis K21.9 Active 048949443 Problem Tobacco use disorder Z72.0 Active 11362018 ALLERGIES Allergen (clinical drug ingredient) Drug/Non Drug Allergy do cumented on EMR Reaction Allergy Type Onset Date Status Anesthetic Maximum Strength Swelling Drug Allergy Active ENCOUNTERS from 1981 to 2020-02-09 Encounter Location Date Provider Diagnosis [facility] [address] [place] [address] Jan Danica Rodriguez Tinea pedis of both feet B35.3 ; RLQ abd ominal pain R10.31 and Immunization not carried out because of patient refusal Z28.21 IMMUNIZATIONS Vaccine Route Administration Date Status Influenza [...] Education Language: Question Answer Notes Languages spoken: Ugandan Jewish: Question Answer Notes Jewish No islam beliefs that would impact health care. Sexual [...] FOR REFERRAL No Information VITAL SIGNS Weight 177.12 lbs Jan, Height 63 3/4 in Jan, BMI 30.64 kg/m2 Jan, Heart Rate 106 /min Jan, Respiratory Rate 20 /min Jan, Temperature 97.3 degrees Fahrenheit Jan, Oximetry 98 Jan, Blood pressure systolic 120 mm Hg Jan, Blood pressure diastolic 76 mm Hg Jan, MEDICATIONS Medication SIG (Take, Route, Frequency, Duration) [...] Information RESULTS No Results REASON FOR VISIT checkup MEDICAL (GENERAL) HISTORY Type Description Date Medical History Diverticulosis Medical History Diverticulitis Medical History Esophageal curve that causes acid reflux Surgical History c section w/tubal ligation 2018 Hospitalization History child 2018 Goals Section No Information Health Concerns No Information MEDICAL EQUIPMENT No Information MENTAL STATUS No Information FUNCTIONAL STATUS No Information ASSESSMENTS Encounter Date Diagnosis Assessment Notes Treatment Notes Treatm ent Clinical Notes Jan, Tinea pedis of both feet (ICD-10 - B35.3) advised to use powder BID. keep socks off and feet dry as much as possible. call if symptoms persist. Jan, RLQ abdominal pain (ICD-10 - R10.31) eval with imaging. Jan, Immunization not carried out because of patient refusal (ICD-10 - Z28.21) Jan, Other Patient verbali zed understanding and agreement with stated plan. PLAN OF TREATMENT Medication Medication Name Sig Start Date Stop Date Fluconazole 50 MG 2 tablets Orally Daily for 10 day(s) Jan, 020 Treatment Notes Assessment Notes Clinical Notes Tinea pedis of both feet advised to use powder BID. keep socks off and feet dry as much as possible. call if symptoms persist. RLQ abdominal pain eval with imaging. Treatment Notes Test Name Order Date CT ABD/PEL w/IV & Oral Contrast 2020-02-09 Next Appt Details 1 Year, prn Reason: Insurance Providers Payer Name Payer Address Payer Phone Insured Name Patient Relati onship to Insured Coverage Start Date Coverage End Date [facility] [address] [place] [address] Cornelia STEPHENSON self
--- OUTSIDE RECORDS SUMMARY | 2020-04-09 08:37 | CCD ---
Author Author [facility] Organization [facility] Address Unknown Phone Unavailable Care Team Providers Care Retail Customer Service Specialist Name Role Phone Danica Rodriguez Unavailable PROBLEMS Type Condition ICD9-CM Code [id number] Code Onset Dates Condition S tatus SNOMED Code Notes Problem Pharyngoesophageal dysphagia R13.14 Active 407 25882 Problem Cigarette nicotine dependence, uncomplicated F17.2 10 Active 81807960 Problem Gastroesophageal reflux disease without esophagitis K21.9 Active 704105498 Problem Tobacco use disorder Z72.0 Active 15529825 ALLERGIES Allergen (clinical drug ingredient) Drug/Non Drug Allergy do cumented on EMR Reaction Allergy Type Onset Date Status Anesthetic Maximum Strength Swelling Drug Allergy Active ENCOUNTERS from 1981 to 2020-02-28 Encounter Location Date Provider Diagnosis [facility] [address] [place] [address] Feb Danica Rodriguez Left ovarian cyst N83.202 IMMUNIZATIONS Vaccine Route Administration Date Status [...] Education Language: Question Answer Notes Languages spoken: Irish Gnosticist: Question Answer Notes Gnosticist No druze beliefs that would impact health care. Sexual [...] Information RESULTS No Results REASON FOR VISIT No Information MEDICAL (GENERAL) HISTORY Type Description Date Medical History Diverticulosis Medical History Diverticulitis Medical History Esophageal curve that causes acid reflux Surgical History c section w/tubal ligation 2018 Hospitalization History child 2018 Goals Section No Information Health Concerns No Information MEDICAL EQUIPMENT No Information MENTAL STATUS No Information FUNCTIONAL STATUS No Information ASSESSMENTS Encounter Date Diagnosis Assessment Notes Treatment Notes Treatm ent Clinical Notes Feb, Left ovarian cyst (ICD-10 - N83.202) PLAN OF TREATMENT Medication Medication Name Sig Start Date Stop Date Fluconazole 50 MG 2 tablets Orally Daily for 10 day(s) Jan, 020 Treatment Notes Test Name Order Date [employer] 2020-02-28 Insurance Providers Payer Name Payer Address Payer Phone Insured Name Patient Relati onship to Insured Coverage Start Date Coverage End Date [employer] [address] [place] [address] Cornelia STEPHENSON self
--- NOTE | 2020-04-09 09:52 | ROOR ---
Patient Name: Kelly Moncada Procedure Date: 04/09/2020 9:22 AM Date of : 1980 Age: 39 Room: [facility] Gender: Female Note Status: Finalized Procedure: Upper Endoscopy + Balloon Dilatation + Biopsies Indications: Oropharyngeal phase dysphagia Providers: Cam Barlow MD Referring MD: Danica Rodriguez NP Requesting Provider: Medicines: Monitored Anesthesia Care Complications: No immediate complications. Procedure: Pre-Anesthesia Assessment: - The heart rate, respiratory rate, oxygen saturations, blood pressure, adequacy of pulmonary ventilation, and response to care were monitored throughout the procedure. The Endoscope was introduced through the mouth, and advanced to the second part of duodenum. The Endoscope was introduced through the mouth, and advanced to the second part of duodenum. Findings: A severe Schatzki ring was found in the upper third of the esophagus. A TTS dilator was passed through the scope. Dilation with an 8-9-10 mm balloon dilator was performed to 10 mm. A TTS dilator was passed through the scope. Dilation with a 10-11-12 mm balloon dilator was performed to 10 mm. The dilation site was examined and showed no change. Biopsies were taken with a cold forceps for histology. Biopsies were taken with a cold forceps for histology. No other significant abnormalities were identified in a careful examination of the stomach. The exam of the duodenum was otherwise normal. Impression: - Severe Schatzki ring. Dilated. Biopsied. - The examination was otherwise normal. Recommendation: - Await pathology results. - Discharge patient to home. - Follow an antireflux regimen. - Continue present medications. - Soft diet. - Refer for a second opinion at appointment to be scheduled. - Telephone GI clinic for pathology results in 1 week. - The findings and recommendations were discussed with the patient. Procedure Code(s): --- Professional --- 32619, Esophagogastroduodenoscopy, flexible, transoral; with transendoscopic balloon dilation of esophagus (less than 30 mm diameter) Diagnosis Code(s): --- Professional --- K22.2, Esophageal obstruction R13.12, Dysphagia, oropharyngeal phase CPT copyright 2019 [employer]. All rights reserved. The codes documented in this report are preliminary and upon director of medical education review may be revised to meet current compliance requirements. Cam Barlow MD Cam Barlow MD 04/09/2020 9:52:01 AM Electronically signed by Cam Barlow MD Number of Addenda: 0 Note Initiated On: 04/09/2020 9:22 AM Estimated Blood Loss: Estimated blood loss: none.
[2020-04-09 10:10] VITALS: BP 112/75
== END 2020-04-09 10:14 | disposition home or self-care (01) ==
LOC: M OPP 08:32
PROVIDERS: ATTEND Internal Medicine Gastroenterology
DX: R13.12 Dysphagia, oropharyngeal phase (principal); D13.0 Benign neoplasm of esophagus; K22.2 Esophageal obstruction; R12 Heartburn; F17.210 Nicotine dependence, cigarettes, uncomplicated; Z79.899 Other long term (current) drug therapy

== ENCOUNTER → 2020-05-01 | Outpatient (REF) | payer OTHER ==
[~2020-05-01] MED LIST changes: -LIDOCAINE 2% 100MG/5ML SDV (FOR ANES.) As Ordered ONE; -NS 1,000 ML IV ONE; -fentaNYL 100 MCG/2 ML INJECTION (J3010) As Ordered ONE; -propofoL 500 MG/50 ML VIAL As Ordered ONE
[2020-05-01 19:15] LABS: LDH LACTATE DEHYDROGENASE 129 U/L (84-246)
[2020-05-01 19:53] LABS: CA 125 5.5 U/ML (<30.2)
[2020-05-01 19:54] LABS: CA19-9 TUMOR MARKER,CARBOHYDRA 11.4 U/ML (<35.0)
== END ==
LOC: M LAB REF 17:18
PROVIDERS: ATTEND Obstetrics & Gynecology
DX: N83.292 Other ovarian cyst, left side (principal)

== ENCOUNTER → 2020-05-08 | Outpatient (CLI) | payer OTHER ==
[~2020-05-08] MED LIST changes: +PROHANCE 279.3MG/ML 15ML VIAL As Ordered ONE
--- NOTE | 2020-05-08 16:33 | REP ---
INDICATION: OTHER SPECIFIED DISEASES OF LIVER. COMPARISON: CT 02/21/2020. TECHNIQUE: Multiple sequences obtained in the axial coronal planes prior to and following the intravenous administration of 14 mL ProHance. FINDINGS: Once again in the right lobe of the liver there is a nodule measuring 2.4 cm in diameter, unchanged in size. It is essentially isointense on T1. It is slightly hyperintense on T2. There is immediate arterial phase enhancement which is mildly heterogeneous. There is slow washout with a persistent blush on the more delayed post-contrast sequences. No other liver lesion is seen. The gallbladder is grossly unremarkable. No biliary dilatation is seen. The spleen, adrenals, pancreas and kidneys are unremarkable and unchanged. There is no evidence of adenopathy or free fluid in the abdomen. IMPRESSION: Right lobe liver lesion is unchanged in size. Maximum diameter is 2.4 cm. Appearance is nonspecific, but in a young female the signal and enhancement pattern suggests that this most likely represents an adenoma. Differential diagnosis would also include atypical hemangioma. Malignant lesion is unlikely if the patient has no history of cancer or other significant risk factors. Correlate clinically. Recommend follow-up MRI in 6-12 months. <Electronically signed by Philipp Bean > 05/08/20 [id number]
== END ==
LOC: M RAD 15:02
PROVIDERS: ATTEND Nurse Practitioner Family
DX: K76.89 Other specified diseases of liver (principal)
CPT/HCPCS: 74183; A9576

== ENCOUNTER → 2020-05-21 | Outpatient (CLI) | payer OTHER ==
[~2020-05-21] MED LIST changes: -PROHANCE 279.3MG/ML 15ML VIAL As Ordered ONE
== END ==
LOC: M LABSMTC 11:33
PROVIDERS: ATTEND Anesthesiology
DX: Z20.828 Contact with and (suspected) exposure to other viral communicable diseases (principal); Z11.59 Encounter for screening for other viral diseases

== ENCOUNTER 2020-05-23 09:59 | Day surgery (SDC) | payer OTHER ==
[~2020-05-23] VITALS: Ht 160 cm; Wt 72.6 kg
[~2020-05-23 09:59] MED LIST changes: +LR 1,000 ML IV ONE; +ceFAZolin SOD 2 GM in IV 1 EA IV ONE
[2020-05-23] MEDS ORDERED: MIDAZOLAM INJ 2MG/2ML VIAL (J2250 PER 1MG) As Ordered ONE (10:30)
[2020-05-23] MEDS ORDERED: HYDROmorphone HCL 2 MG/ML 1ML VIAL (J1170) As Ordered ONE ×2 (10:30→14:40)
[2020-05-23] MEDS ORDERED: fentaNYL 100 MCG/2 ML INJECTION (J3010) As Ordered ONE (10:30)
[2020-05-23] MEDS ORDERED: LIDOCAINE 2% 100MG/5ML SDV (FOR ANES.) As Ordered ONE ×2 (10:32→12:27)
[2020-05-23] MEDS ORDERED: KETOROLAC 60MG 2ML VIAL As Ordered ONE ×2 (10:32→14:18)
[2020-05-23] MEDS ORDERED: dexameTHASONE 4 MG/ML 1ML VIAL (J1100 PER 1MG) As Ordered ONE (10:32)
[2020-05-23] MEDS ORDERED: ONDANSETRON 4MG/2ML VIAL As Ordered ONE ×2 (10:32→14:25)
[2020-05-23] MEDS ORDERED: ROCURONIUM BROMIDE 50 MG/5 ML VIAL As Ordered ONE ×2 (10:32→13:39)
[2020-05-23] MEDS ORDERED: propofoL 200 MG/20 ML VIAL As Ordered ONE ×2 (10:32→14:16)
[2020-05-23 10:40] LABS: HEMATOCRIT 44.5 % (36.0-47.0); HEMOGLOBIN 14.5 g/dl (12.0-15.5); MEAN CORPUSCULAR HEMOGLOBIN 31.2 pg (27.0-33.0); MEAN CORPUSCULAR HGB CONC 32.6 g/dl (32.0-36.5); MEAN CORPUSCULAR VOLUME 95.7 fl (80.0-96.0); PLATELET COUNT, AUTOMATED 369 10^3/uL (150-450); RED BLOOD COUNT 4.65 10^6/uL (4.00-5.40); WHITE BLOOD COUNT 11.6 10^3/uL (4.0-10.0)
[2020-05-23] MEDS ORDERED: BUPIVACAINE/EPIN 0.25% 30 ML VIAL As Ordered ONE (12:39)
[2020-05-23] MEDS ORDERED: ESMOLOL INJ 100MG/10ML VIAL As Ordered ONE (12:50)
[2020-05-23] MEDS ORDERED: ATROPINE SULF 0.4 MG/ML 1ML VIAL (J0461) As Ordered ONE (13:30)
[2020-05-23] MEDS ORDERED: ACETAMINOPHEN 1000MG 100ML IV BTL (OFIRMEV) (J0131 PER 10MG) As Ordered ONE (14:18)
[2020-05-23] MEDS ORDERED: METOCLOPRAMIDE INJ 10MG/2ML VIAL (J2765 PER 1) As Ordered ONE (14:25)
[2020-05-23] MEDS ORDERED: SUGAMMADEX SODIUM 500 MG/5 ML VIAL (BRIDION) As Ordered ONE (14:25)
[2020-05-23] MEDS ORDERED: PERC5TAB12 PO (14:35)
[2020-05-23] MEDS ORDERED: ONDANSETRON 4MG/2ML VIAL IV PRN (15:15)
[2020-05-23] MEDS ORDERED: LR 1,000 ML IV SCH (15:15)
[2020-05-23] MEDS ORDERED: MORPHINE 2 MG/ML 1ML VIAL (J2270) IV PRN (15:15)
[2020-05-23] MEDS ORDERED: oxyCODONE 5MG TAB PO PRN (15:15)
[2020-05-23 16:45] VITALS: BP 100/56
--- NOTE | 2020-05-24 13:20 | RO ---
OPERATIVE NOTE DATE OF OPERATION: 05/23/2020 INDICATIONS FOR PROCEDURE: Kelly is a 39-year-old female who was found to have a large left ovarian cyst on ultrasound and CT scan. After extensive counseling in the office, the decision was made to proceed with a robotic-assisted laparoscopy with possible removal of the left ovarian cyst and possible oophorectomy. PREOPERATIVE DIAGNOSIS: Complex large left ovarian mass. POSTOPERATIVE DIAGNOSIS: Complex large left ovarian mass. PROCEDURE: Robotic-assisted left salpingo-oophorectomy. SURGEON: Quoc Cason D.O. AQUACULTURE AND FISHERIES PROFESSOR: VAMSI Jasso. ANESTHESIA: General. COMPLICATIONS: None. ESTIMATED BLOOD LOSS: Less 30 mL. FINDINGS: An enlarged left ovarian mass with very little ovarian tissue preserved, which appeared to be a mucinous cyst. The tubes were also removed and they look within normal limits. DESCRIPTION OF PROCEDURE: After obtaining informed consent, the patient was taken to the operating room where general anesthetic was found to be adequate. She was then draped and prepped in the usual sterile fashion in the dorsolithotomy position. At this point, a ZSprio uterine manipulator was placed. A Harley catheter was placed in the bladder for drainage. We then turned our attention to the abdomen where 8-mm infraumbilical incision was made. Using the Veress needle, the abdomen was insufflated with CO2 gas to approximately 3.5 liters. We then placed two left lateral 8 mm ports, one for robotic arm one and one for the assist port. On the right side, an 8 mm right lateral port was placed. The patient was placed in steep Trendelenburg. The robot was brought to the patient's right side and was docked in the usual fashion. Upon docking the camera port, proper targeting was performed and the remaining arm was then docked. A Vessel Sealer was placed on arm one and bipolar grasper in arm two. Dense omental adhesions were noted, which were removed. At this point, the pelvis was identified. A large left ovarian mass was noted. The uterus was within normal limits. The right ovary was found to be within normal limits. Given the size of the cyst and this encompassed the whole ovary and was felt to be heavy, at this point the decision was made to proceed with a left salpingo-oophorectomy. The Vessel Sealer was used. The infundibulopelvic ligament was cauterized and the utero-ovarian ligament was also cauterized and cut. The entire tube, as well as the ovary and mass were removed. This was placed in an Endo bag, ruptured, and suctioned out. The remaining cyst wall and the tube were removed at the abdominal site after undocking the robot. The pelvis was copiously irrigated with normal saline and suctioned out. Good hemostasis was noted. All instruments were removed. The trocar sites were closed using 3-0 Vicryl in a subcuticular fashion. The patient tolerated the procedure well. She was then transferred to the recovery room in stable condition.
== END 2020-05-23 16:50 | disposition home or self-care (01) ==
LOC: M SDC 09:59
PROVIDERS: ATTEND Obstetrics & Gynecology
DX: N83.292 Other ovarian cyst, left side (principal); R10.2 Pelvic and perineal pain; K21.9 Gastro-esophageal reflux disease without esophagitis; K57.92 Diverticulitis of intestine, part unspecified, without perforation or abscess without bleeding; Z79.899 Other long term (current) drug therapy; Z88.8 Allergy status to other drugs, medicaments and biological substances; F17.218 Nicotine dependence, cigarettes, with other nicotine-induced disorders
CPT/HCPCS: 36415; 58661; 85027; 86850; 86900; 86901; 88307; J0131; J0461; J0690; J1100; J1170; J1885; J2250; J2405; J2765; J3010; S2900

== ENCOUNTER → 2021-06-18 | Outpatient (REF) | payer OTHER ==
[~2021-06-18] MED LIST changes: -LR 1,000 ML IV ONE; -OMEP-221; +OMEP40CA5; -ceFAZolin SOD 2 GM in IV 1 EA IV ONE
== END ==
LOC: M SFHCCAPE 14:11
PROVIDERS: ATTEND Physician Assistant
DX: J22 Unspecified acute lower respiratory infection (principal)

== ENCOUNTER → 2021-07-08 | Outpatient (REF) | payer OTHER | LOC: M SFHCCLAY 10:56 | PROVIDERS: ATTEND Physician Assistant | DX: J02.9 Acute pharyngitis, unspecified (principal) ==

== ENCOUNTER → 2021-12-31 | Outpatient (CLI) | payer OTHER | LOC: M WHC 09:11 | PROVIDERS: ATTEND Obstetrics & Gynecology | DX: Z12.31 Encounter for screening mammogram for malignant neoplasm of breast (principal); R92.8 Other abnormal and inconclusive findings on diagnostic imaging of breast ==

== ENCOUNTER → 2022-01-27 | Outpatient (CLI) | payer OTHER | LOC: M WHC 15:17 | PROVIDERS: ATTEND Obstetrics & Gynecology | DX: R92.8 Other abnormal and inconclusive findings on diagnostic imaging of breast (principal); N60.12 Diffuse cystic mastopathy of left breast | CPT/HCPCS: 76642; 77065; G0279 ==